=== PATIENT | male | born 1950 | race Caucasian/White ===

== ENCOUNTER 2025-09-22 17:19 | Emergency (ER) | payer OTHER ==
[2025-09-22] MEDS ORDERED: Lidocaine 1% w/Epinephrine 1:100K 20 ML VIAL ONE (17:39)
[2025-09-22] MEDS ORDERED: Sulfameth/Trimethoprim DS 800-160mg TAB ONE (18:07)
== END 2025-09-22 18:13 | disposition still patient (30) ==
LOC: EEVIPCON 17:19 → NAV ERS 17:19
DX: L02.212 Cutaneous abscess of back [any part, except buttock and flank] (principal); L08.9 Local infection of the skin and subcutaneous tissue, unspecified; E11.9 Type 2 diabetes mellitus without complications; I10 Essential (primary) hypertension; Z79.82 Long term (current) use of aspirin; Z79.899 Other long term (current) drug therapy
CPT/HCPCS: 10060; 87070; 87205